=== PATIENT | female | born 1975 | race Caucasian/White ===

== ENCOUNTER 2017-01-13 10:23 | Emergency (ER) | payer MEDICAID ==
[2009-06-19 07:34] VITALS: BMI 28.3
== END 2017-01-13 12:03 | disposition home or self-care (01) ==
LOC: D.ER 10:23
DX: K64.9 Unspecified hemorrhoids (principal); K59.00 Constipation, unspecified; K62.89 Other specified diseases of anus and rectum; R10.2 Pelvic and perineal pain